=== PATIENT | female | born 1945 | race Caucasian/White ===

== ENCOUNTER → 2017-05-13 | Outpatient (REF) ==
[~2017-05-13] MED LIST: ASPIRIN E.C. 8181 MG PO; DYAZIDE 25 MG-51 CAP PO; LIPITOR 40MG TA40 MG PO; MAG-AL PLUS 3030 ML PO; METAMUCIL3.4 GM/DOS PO; OYSCO 500500 M1 PO; PEPCID 20MG TAB20 MG PO; PRINIVIL20 MG PO; SINEQUAN 5050 MG/CAP PO; SURFAK 240240 MG/CAP PO; SYNTHROID0.075 MG/T PO; TYLENOL 500MG500 MG PO; XANAX .25M0.25 MG/TA PO
[2017-05-13 09:37] LABS: CALCIUM 9.9 mg/dL (8.4-10.2); CREATININE, serum 0.93 mg/dL (0.52-1.25)
== END ==
LOC: ZLAB.STJ 08:56
PROVIDERS: Family Medicine
DX: E87.6 Hypokalemia (principal)

== ENCOUNTER → 2018-02-16 | Outpatient (CLI) | payer MEDICARE, BC, MEDICAID | LOC: MC.RAD 09:49 | DX: Z12.31 Encounter for screening mammogram for malignant neoplasm of breast (principal); F41.1 Generalized anxiety disorder ==

== ENCOUNTER → 2018-06-10 | Outpatient (CLI) | payer MEDICARE, BC, MEDICAID ==
[2018-06-10 12:13] LABS: CALCIUM 9.9 mg/dL (8.4-10.2); CREATININE, serum 0.89 (0.52-1.25); POTASSIUM 3.8 mmol/L (3.4-5.0)
== END ==
LOC: ZLAB.STJ 11:54
PROVIDERS: Family Medicine
DX: I10 Essential (primary) hypertension (principal)

== ENCOUNTER → 2018-06-10 | Outpatient (CLI) | payer MEDICARE, BC, MEDICAID | LOC: ZLAB.STJ 10:22 | DX: I10 Essential (primary) hypertension (principal) ==

== ENCOUNTER → 2018-11-18 | Outpatient (CLI) | payer MEDICARE, BC, MEDICAID | LOC: ZLAB.STJ 13:29 | DX: E87.6 Hypokalemia (principal) ==

== ENCOUNTER → 2018-11-19 | Outpatient (CLI) | payer MEDICARE, BC, MEDICAID | LOC: ZCOL.LAB 10:26 → ZLAB.STJ 10:26 | DX: E87.6 Hypokalemia (principal) ==

== ENCOUNTER → 2019-08-19 | Outpatient (CLI) | payer MEDICARE, BC, MEDICAID | LOC: ZLAB.STJ 14:38 | DX: Z01.84 Encounter for antibody response examination (principal); Z20.828 Contact with and (suspected) exposure to other viral communicable diseases ==

== ENCOUNTER 2019-12-16 03:43 | Inpatient (IN) | payer MEDICARE, BC, MEDICAID ==
[~2019-12-16] VITALS: Ht 147.3 cm; Wt 61.4 kg
[2019-12-16] VITALS (11 sets, daily range): BP systolic 101–149; BP diastolic 53–77; PULSE 74–97; TEMP 97.6–99
[2019-12-16 04:45] LABS: BASO % 0.2 % (0.0-2.0); EOS # 0.1 (0.0-0.7); EOS % 1.1 % (0-4.0); GRAN # 10.5 (1.4-6.5); GRAN % 84.2 % (42.2-75.2); HEMOGLOBIN 12.8 g/dl (12.5-16.0); LYMPH # 0.9 (1.2-3.4); LYMPH % 6.8 % (20.0-51.0); MEAN CELL VOLUME 88 fl (80.0-100.0); MEAN CORPUSCULAR HEMOGLOBIN 31 pg (27.0-31.0); MEAN CORPUSCULAR HGB CONC 35 g/dl (33.0-37.0); MEAN PLATELET VOLUME 10.3 fl (7.4-10.4); MONO # 0.9 (0.1-0.6); MONO % 7.2 % (1.7-9.3); PLATELET COUNT 233 K/mm3 (130-400); RED BLOOD COUNT 4.15 M/mm3 (4.10-5.30); REDCELL DISTRIBUTION WIDTH-CV 12.9 % (11.5-14.5)
[2019-12-16 04:47] LABS: HEMATOCRIT 36.7 % (37.0-47.0)
[2019-12-16 04:52] LABS: INR 1.1 (0.8-3.0); PROTHROMBIN TIME 12.4 SECONDS (9.7-12.8)
[2019-12-16 04:54] LABS: ALBUMIN 4.4 gm/dL (3.5-5.0); BILIRUBIN,TOTAL 0.5 mg/dL (0.0-1.0); CALCIUM 9.8 mg/dL (8.4-10.2); CREATININE, serum 0.99 (0.52-1.25); POTASSIUM 3.1 mmol/L (3.4-5.0); TOTAL PROTEIN 7.7 gm/dL (6.4-8.2)
[2019-12-16 05:01] LABS: PRE ALBUMIN 22.9 mg/dL (17.6-36.0)
[2019-12-16] MEDS ORDERED: TYLENOL 500MG500 MG PO (06:12)
[2019-12-16] MEDS ORDERED: CALCIUM-500 5001 CTB PO (06:13)
[2019-12-16] MEDS ORDERED: NORVASC 5MG5 MG/TAB PO (06:13)
[2019-12-16] MEDS ORDERED: DYAZIDE 25 MG-31 CAP PO (06:14)
[2019-12-16] MEDS ORDERED: STOOL SOFTENER240 M1 PO (06:14)
[2019-12-16] MEDS ORDERED: METAMUCIL3.4 GM/Dos PO (06:14)
[2019-12-16] MEDS ORDERED: VITAMIN D31000 I1 PO (06:15)
[2019-12-16] MEDS ORDERED: TRICOR145 MG PO (06:15)
[2019-12-16] MEDS ORDERED: XANAX 0.5MG0.5 MG PO (06:15)
[2019-12-16] MEDS ORDERED: SYNTHROID0.075 MG/T PO (06:15)
[2019-12-16] MEDS ORDERED: DEBROX OT (06:15)
[2019-12-16] MEDS ORDERED: TUMS500 MG PO (06:16)
[2019-12-16] MEDS ORDERED: K-TAB10 PO (06:17)
[2019-12-16] MEDS ORDERED: PEPCID 20MG TAB20 MG PO (06:17)
[2019-12-16] MEDS ORDERED: ARTIFICIAL TEAR15 M7 OP ×2 (06:17)
[2019-12-16] MEDS ORDERED: FLONASEALLERGY NS (06:18)
[2019-12-16] MEDS ORDERED: MELATIN 3 MG-11 TAB PO (06:18)
[2019-12-16] MEDS ORDERED: CLARITIN 1010 MG/TAB PO (06:18)
[2019-12-16] MEDS ORDERED: FOSAMAX 70MG TA70 MG PO (06:18)
[2019-12-16] MEDS ORDERED: CRESTOR40 MG PO (06:18)
[2019-12-16] MEDS ORDERED: SINEQUAN 5050 MG/CAP PO (06:39)
--- NOTE | 2019-12-16 15:13 | NUR ---
The patient has a cognitive delay. HANNA contacted the patient's sister, Adrienne Lagos (ph#[phone]), to discuss discharge plan. The patient resides at [facility] in Assisted Living. Adrienne states that the patient does not utilize any assistive devices. Her PCP is Dr. Marie Mcdonald. The patient does not have a DPOA-HC in EMR, but Adrienne states that the patient does have one completed and that she is the patient's DPOA-HC. She states that she can bring a copy of the document to the hospital and that [facility] should have a copy. The patient has a hip fracture. Adrienne reports that the plan is for the patient to return back to [facility] and do rehab there. HANNA faxed updates to Cesario at [facility] and requested the patient's DPOA-HC. HANNA to continue to follow.
--- NOTE | 2019-12-16 17:01 | NUR ---
Patient currently still in OR. Recieved Q2 morphine through the morning for pain prior to surgery. Patient does have a mental delay and speaks very briskly which makes it hard to understand. Sister is here currently.
--- NOTE | 2019-12-16 17:49 | NUR ---
PAtient arrived back to room from OR at this time. She is alert. Vitals being monitored per protocol. PAtient is aware of the numbness in her legs but continues to speak about this. PAtient is very shakey, denies being cold. No pain at all at this time. Dressing is CD&I, pulses are intact. Will continue to monitor.
--- NOTE | 2019-12-16 19:45 | NUR ---
Resting in bed. Assessment complete. Lungs clear. Heart sounds normal. Bowels active x4. Pulses present throughout. No edema noted. IV left wrist infiltrated. Restarted in right forearm. Denies pain at this time. Denies needs. Call light in reach. Ice to left hip, dressing CDI.
--- NOTE | 2019-12-17 00:45 | NUR ---
Resting in bed. Denies needs. Call light in reach.
--- NOTE | 2019-12-17 02:00 | NUR ---
Resting in bed. Denies needs. Call light in reach.
[2019-12-17 03:03] VITALS: BP 136/87; PULSE 75; TEMP 97.9
--- NOTE | 2019-12-17 05:09 | NUR ---
Patient required PRN norco for pain control x1 dose throughout night. Potassium replacement in progress-running slower due to patient sensitivity. Otherwise uneventful night. Resting in bed this Am. Call light in reach.
[2019-12-17 07:38] VITALS: BP 135/73; PULSE 93; TEMP 98
--- NOTE | 2019-12-17 07:38 | NUR ---
Report given to KOBY Garcia
[2019-12-17 07:46] LABS: BASO % 0.1 % (0.0-2.0); EOS % 0.1 % (0-4.0); GRAN # 12.7 (1.4-6.5); GRAN % 88.1 % (42.2-75.2); HEMOGLOBIN 12.5 g/dl (12.5-16.0); LYMPH # 0.8 (1.2-3.4); LYMPH % 5.6 % (20.0-51.0); MEAN CELL VOLUME 90 fl (80.0-100.0); MEAN CORPUSCULAR HEMOGLOBIN 31 pg (27.0-31.0); MEAN CORPUSCULAR HGB CONC 35 g/dl (33.0-37.0); MEAN PLATELET VOLUME 11.5 fl (7.4-10.4); MONO # 0.8 (0.1-0.6); MONO % 5.8 % (1.7-9.3); PLATELET COUNT 235 K/mm3 (130-400); RED BLOOD COUNT 3.99 M/mm3 (4.10-5.30)
[2019-12-17 07:57] LABS: HEMATOCRIT 35.8 % (37.0-47.0)
[2019-12-17 07:59] LABS: ALBUMIN 4.2 gm/dL (3.5-5.0); BILIRUBIN,TOTAL 0.6 mg/dL (0.0-1.0); CREATININE, serum 0.96 (0.52-1.25); POTASSIUM 4.2 mmol/L (3.4-5.0); TOTAL PROTEIN 7.5 gm/dL (6.4-8.2)
--- NOTE | 2019-12-17 08:06 | NUR ---
Pt assessment complete. Pt is A/O x4. Her breathing is even and unlabored on RA. Pt denies SOB. With a lot of encouragement and with assistance from staff patient assisted from the bed to the chair. L hip dressing CDI. Wyatt valdes on. Jesus DD. Pt tolerating liquids without complications. Diet advanced to regular per order set. No needs at this time. Call light within reach.
[2019-12-17 12:11] LABS: COLLECTION METHOD CATHETER
[2019-12-17 12:16] LABS: PH 7 (5-8); SQUAMOUS EPITHELIAL None Seen /hpf; URINE APPEARANCE Clear; URINE BACTERIA None Seen /hpf; URINE BILIRUBIN Negative (NEGATIVE); URINE BLOOD 1+ (NEGATIVE); URINE COLOR Colorless; URINE GLUCOSE Negative (NEGATIVE); URINE KETONE Negative (NEGATIVE); URINE LEUKOCYTE ESTERASE Negative (NEGATIVE); URINE NITRATE Negative (NEGATIVE); URINE PROTEIN(semi-quant) Negative (NEGATIVE); URINE RBC 0-2 /hpf; URINE UROBILINOGEN Negative (NEGATIVE)
[2019-12-17 14:01] VITALS: BP 132/74; PULSE 86; TEMP 98.3
[2019-12-17 16:50] VITALS: BP 119/40; PULSE 85; TEMP 98.4
--- NOTE | 2019-12-17 18:58 | NUR ---
Pt up to the chair twice today, required a lot of encouragement and assistance. Incisional site CDI. Ice to L hip site. SCD's and VIRGILIO's in place. Intermittently needed supplemental oxygen at 1L O2. Unable to perform IS correctly. Call light within reach, chair alarm on.
[2019-12-17 20:30] VITALS: BP 118/51; PULSE 86; TEMP 98.7
--- NOTE | 2019-12-17 20:30 | NUR ---
Initial shift assessment done- states had just a little pain to left hip, dressing dry and intact- ice to incision, will give Tylenol with night meds. Unable to understand and do the IS--- did cough and take deep breathes, Lee with clear yellow urine-
[2019-12-17 21:04] VITALS: BP 117/49; PULSE 73
[2019-12-18] VITALS (8 sets, daily range): BP systolic 106–129; BP diastolic 50–90; PULSE 73–86; TEMP 97.6–101.7
--- NOTE | 2019-12-18 07:30 | NUR ---
RECEIVED REPORT FROM SANDRA, PATIENT IS AWAKE AND ALERT. IS RESTING SLIGHTLY TO THE LEFT. REPEATEDLY STATES SHE DOESN'T WANT TO GO HOME AND THAT SHE IS NOT READY. SHE ALSO STATES SHE IS VERY HUNGRY AND WAS NOTIFIED THAT TRAYS WOULD BE DELIVERED SOON.
--- NOTE | 2019-12-18 08:01 | NUR ---
Was medicated with pain pill just once during the shift {besides the tylenol at start of shift} ice to incision, dressing dry and intact to hip--100cc out the Lee this shift
--- NOTE | 2019-12-18 20:30 | NUR ---
Initial shift assessment done- pt calling out that right leg is "twitching" -- was just given some Morphine by day shift nurse- left hip dressing dry and intac, encouraged pt to C&DB--did do a few cough for nurse-- unable to do IS,,SCD,s on- VSS, o2 at 2L/nc with sats 94%
[2019-12-19 04:19] VITALS: BP 129/62; PULSE 72; TEMP 98.5
--- NOTE | 2019-12-19 06:44 | NUR ---
Quiet night-- did give her a [place] at around 0100 this morning for some leg pain , Then did get [place] [facility] [place]/gait belt and walker/ unsteady--voided 250cc annie urine.
[2019-12-19 07:38] LABS: BASO # 0.1 (0.0-0.2); BASO % 0.6 % (0.0-2.0); EOS # 0.4 (0.0-0.7); EOS % 4.8 % (0-4.0); GRAN % 69.6 % (42.2-75.2); HEMATOCRIT 33.7 % (37.0-47.0); HEMOGLOBIN 11.7 g/dl (12.5-16.0); LYMPH # 1.3 (1.2-3.4); LYMPH % 14.8 % (20.0-51.0); MEAN CELL VOLUME 90 fl (80.0-100.0); MEAN CORPUSCULAR HEMOGLOBIN 31 pg (27.0-31.0); MEAN CORPUSCULAR HGB CONC 35 g/dl (33.0-37.0); MONO # 0.8 (0.1-0.6); MONO % 9.8 % (1.7-9.3); PLATELET COUNT 202 K/mm3 (130-400); RED BLOOD COUNT 3.76 M/mm3 (4.10-5.30)
[2019-12-19 07:48] LABS: CALCIUM 8.7 mg/dL (8.4-10.2); CREATININE, serum 1.03 (0.52-1.25); MAGNESIUM 2.3 mg/dL (1.6-2.3); POTASSIUM 3.9 mmol/L (3.4-5.0)
[2019-12-19 08:00] VITALS: BP 108/53; PULSE 99; TEMP 98.6
[2019-12-19 10:06] VITALS: BP 108/53; PULSE 99; TEMP 98.6
[2019-12-19] MEDS ORDERED: ASPI325T6 PO (10:06)
[2019-12-19] MEDS ORDERED: TYLENOL 500MG500 MG PO (10:07)
[2019-12-19] MEDS ORDERED: NORCO 325 MG-51 TAB PO (10:08)
[2019-12-19] MEDS ORDERED: VITAMIN C500 MG PO (10:08)
--- NOTE | 2019-12-19 10:47 | NUR ---
PATIENT IS SITTING UP IN RECLINER WATCHING TV AND DRINKING HOT TEA. CURRENTLY DENIES PAIN.
[2019-12-19 11:43] VITALS: BP 107/50; PULSE 101; TEMP 98.6
[2019-12-19 14:20] VITALS: BP 107/50; PULSE 101; TEMP 98.6
--- NOTE | 2019-12-19 14:24 | NUR ---
HANNA contacted by community organization worker stating that patient will DC on 12/19/19. HANNA contacted [facility] staff and set up 2:30pm, and faxed dc orders to agency. Nothing further.
--- NOTE | 2019-12-19 15:54 | NUR ---
Patient discharged to [facility] bed at 1456. Was assisted from bed to commode and assisted with dressing. Personal items were gathered and patient was transferred to wheelchair. Was transported to the facility via facility transportation.
== END 2019-12-19 14:56 | DRG 522 ==
LOC: COL.ER 03:43 → MEDICAL 04:19
PROVIDERS: Emergency Medicine; Internal Medicine; Nurse Practitioner Family; Orthopaedic Surgery Sports Medicine; ADMIT Student in an Organized Health Care Education/Training Program
PROC: 0SRS0J9 Replacement of Left Hip Joint, Femoral Surface with Synthetic Substitute, Cemented, Open Approach (ICD-10-PCS; principal; 2019-12-16 14:45)
DX: S72.002A Fracture of unspecified part of neck of left femur, initial encounter for closed fracture (principal); I10 Essential (primary) hypertension; E78.5 Hyperlipidemia, unspecified; E03.9 Hypothyroidism, unspecified; K21.9 Gastro-esophageal reflux disease without esophagitis; F32.9 Major depressive disorder, single episode, unspecified; F41.9 Anxiety disorder, unspecified; M19.90 Unspecified osteoarthritis, unspecified site; E87.6 Hypokalemia; G47.00 Insomnia, unspecified; G31.84 Mild cognitive impairment of uncertain or unknown etiology
CPT/HCPCS: 99223-AI; 99232-AI; 99239; A4314; A9284; C1776; J0690; J1100; J1885; J2250; J2270; J2405; J2704; J3010; J3475; J3480; J7030; J7120

== ENCOUNTER → 2020-01-06 | Outpatient (CLI) | payer MEDICARE, BC, MEDICAID ==
[~2020-01-06] MED LIST changes: +ARTIFICIAL TEAR15 M7 OP; +ASPI325T6 PO; +CALCIUM-500 5001 CTB PO; +CLARITIN 1010 MG/TAB PO; +CRESTOR40 MG PO; +DEBROX OT; +DYAZIDE 25 MG-31 CAP PO; +FLONASEALLERGY NS; +FOSAMAX 70MG TA70 MG PO; +K-TAB10 PO; +MELATIN 3 MG-11 TAB PO; +METAMUCIL3.4 GM/Dos PO; +NORCO 325 MG-51 TAB PO; +NORVASC 5MG5 MG/TAB PO; +STOOL SOFTENER240 M1 PO; +TRICOR145 MG PO; +TUMS500 MG PO; +VITAMIN C500 MG PO; +VITAMIN D31000 I1 PO; +XANAX 0.5MG0.5 MG PO
[2020-01-06 19:47] LABS: COLLECTION METHOD RANDOM VOIDED
[2020-01-06 19:59] LABS: PH 7 (5-8); SQUAMOUS EPITHELIAL 0-2 /hpf; URINE APPEARANCE Clear; URINE BACTERIA Rare /hpf; URINE BILIRUBIN Negative (NEGATIVE); URINE BLOOD Negative (NEGATIVE); URINE COLOR Yellow; URINE GLUCOSE Negative (NEGATIVE); URINE KETONE Negative (NEGATIVE); URINE LEUKOCYTE ESTERASE Negative (NEGATIVE); URINE NITRATE Negative (NEGATIVE); URINE PROTEIN(semi-quant) Negative (NEGATIVE); URINE RBC 0-2 /hpf; URINE UROBILINOGEN Negative (NEGATIVE)
== END ==
LOC: ZCOL.LAB 18:48
PROVIDERS: Family Medicine
DX: R30.9 Painful micturition, unspecified (principal)

== ENCOUNTER → 2020-02-02 | Outpatient (CLI) | payer MEDICARE, BC, MEDICAID | LOC: COL.RAD 12:18 | DX: Z96.642 Presence of left artificial hip joint (principal) ==

== ENCOUNTER → 2021-05-01 | Outpatient (CLI) | payer MEDICARE, BC, MEDICAID ==
[2021-05-01 10:25] LABS: COLLECTION METHOD CLEAN CATCH
[2021-05-01 10:46] LABS: MUCOUS Present (NOT PRESENT); PH 6 (5-8); SQUAMOUS EPITHELIAL 0-2 /hpf (0-10); URINE APPEARANCE Cloudy (CLEAR/HAZY); URINE BACTERIA Rare /hpf (NONE SEEN); URINE BILIRUBIN Negative (NEGATIVE); URINE BLOOD Negative (NEGATIVE); URINE CALCIUM OXALATE CRYSTAL Present (NOT PRESENT); URINE COLOR Yellow (YELLOW); URINE GLUCOSE Negative (NEGATIVE); URINE KETONE Negative (NEGATIVE); URINE LEUKOCYTE ESTERASE Negative (NEGATIVE); URINE NITRATE Negative (NEGATIVE); URINE PROTEIN(semi-quant) Negative (NEGATIVE); URINE RBC 0-2 /hpf (0-2); URINE UROBILINOGEN Negative (NEGATIVE)
== END ==
LOC: ZLAB.STJ 09:35
PROVIDERS: Family Medicine
DX: N18.31 Chronic kidney disease, stage 3a (principal)

== ENCOUNTER → 2021-05-11 | Outpatient (CLI) | payer MEDICARE, BC, MEDICAID ==
[2021-05-11 10:01] LABS: BILIRUBIN,TOTAL 0.4 mg/dL (0.2-1.2); CALCIUM 10.3 mg/dL (8.4-10.2); CREATININE, serum 0.9 mg/dL (0.57-1.11); POTASSIUM 3.3 mmol/L (3.5-4.5); TOTAL PROTEIN 7.7 gm/dL (6.2-8.1)
== END ==
LOC: ZLAB.STJ 09:13
PROVIDERS: Family Medicine
DX: R73.03 Prediabetes (principal); I10 Essential (primary) hypertension

== ENCOUNTER → 2021-06-18 | Outpatient (CLI) | payer MEDICARE, BC, MEDICAID ==
[2021-06-18 13:09] LABS: CALCIUM 9.8 mg/dL (8.4-10.2); CREATININE, serum 1.05 mg/dL (0.57-1.11); POTASSIUM 3.4 mmol/L (3.5-4.5)
== END ==
LOC: ZLAB.STJ 11:36
PROVIDERS: Family Medicine
DX: I10 Essential (primary) hypertension (principal)

== ENCOUNTER → 2021-06-29 | Outpatient (CLI) | payer MEDICARE, BC, MEDICAID ==
[2021-06-29 12:33] LABS: CALCIUM 9.7 mg/dL (8.4-10.2); CREATININE, serum 1.04 mg/dL (0.57-1.11); POTASSIUM 3.5 mmol/L (3.5-4.5)
== END ==
LOC: ZLAB.STJ 11:44
PROVIDERS: Family Medicine
DX: N18.31 Chronic kidney disease, stage 3a (principal)

== ENCOUNTER → 2021-07-12 | Outpatient (CLI) | payer MEDICARE, BC, MEDICAID ==
[2021-07-12 14:11] LABS: COLLECTION METHOD CLEAN CATCH
[2021-07-12 14:24] LABS: MUCOUS Present (NOT PRESENT); PH 6 (5-8); SQUAMOUS EPITHELIAL 0-2 /hpf (0-10); URINE APPEARANCE Hazy (CLEAR/HAZY); URINE BACTERIA None Seen /hpf (NONE SEEN); URINE BILIRUBIN Negative (NEGATIVE); URINE BLOOD Negative (NEGATIVE); URINE COLOR Yellow (YELLOW); URINE GLUCOSE Negative (NEGATIVE); URINE KETONE Negative (NEGATIVE); URINE LEUKOCYTE ESTERASE Trace (NEGATIVE); URINE NITRATE Negative (NEGATIVE); URINE PROTEIN(semi-quant) Negative (NEGATIVE); URINE RBC 0-2 /hpf (0-2); URINE UROBILINOGEN Negative (NEGATIVE)
== END ==
LOC: ZLAB.STJ 12:47
PROVIDERS: Family Medicine
DX: N39.0 Urinary tract infection, site not specified (principal)

== ENCOUNTER → 2021-09-06 | Outpatient (CLI) | payer MEDICARE, BC, MEDICAID | LOC: ZLAB.STJ 11:32 | DX: R73.03 Prediabetes (principal) ==

== ENCOUNTER → 2021-11-20 | Outpatient (CLI) | payer MEDICARE, BC, MEDICAID ==
[2021-11-20 16:05] LABS: COLLECTION METHOD CLEAN CATCH
[2021-11-20 16:13] LABS: BASO % 0.8 % (0.0-2.0); EOS # 0.2 K/mm3 (0.0-0.7); EOS % 4.2 % (0.0-4.0); GRAN # 2.8 K/mm3 (1.4-6.5); GRAN % 57.4 % (42.2-75.2); HEMOGLOBIN 12.2 g/dl (12.5-16.0); LYMPH # 1.2 K/mm3 (1.2-3.4); LYMPH % 25.9 % (20.0-51.0); MEAN CELL VOLUME 94 fl (80.0-100.0); MEAN CORPUSCULAR HEMOGLOBIN 33 pg (27-31); MEAN CORPUSCULAR HGB CONC 35 g/dl (33.0-37.0); MEAN PLATELET VOLUME 11.1 fl (7.4-10.4); MONO # 0.6 K/mm3 (0.1-0.6); MONO % 11.5 % (1.7-9.3); PLATELET COUNT 213 K/mm3 (130-400); RED BLOOD COUNT 3.68 M/mm3 (4.10-5.30); REDCELL DISTRIBUTION WIDTH-CV 12.7 % (11.5-14.5)
[2021-11-20 16:14] LABS: HEMATOCRIT 34.5 % (37.0-47.0)
[2021-11-20 16:16] LABS: PH 6.5 (5.0-8.5); URINE APPEARANCE Clear (CLEAR/HAZY); URINE BLOOD Negative (NEGATIVE); URINE COLOR Yellow (YELLOW); URINE GLUCOSE Negative (NEGATIVE); URINE KETONE Negative (NEGATIVE); URINE NITRATE Negative (NEGATIVE); URINE PROTEIN(semi-quant) Negative (NEGATIVE); URINE UROBILINOGEN 0.2 E.U/dL (0.2-1.0)
[2021-11-20 16:21] LABS: MUCOUS Present (NOT PRESENT); SQUAMOUS EPITHELIAL 0-2 /hpf (0-10); URINE BACTERIA None Seen /hpf (NONE SEEN); URINE RBC 0-2 /hpf (0-2); URINE WBC 0-2 /hpf (0-2)
[2021-11-20 16:27] LABS: ALBUMIN 3.6 gm/dL (3.4-4.8); BILIRUBIN,TOTAL 0.4 mg/dL (0.2-1.2); CALCIUM 10.7 mg/dL (8.4-10.2); CREATININE, serum 1.19 mg/dL (0.57-1.11); POTASSIUM 3.7 mmol/L (3.5-4.5)
[2021-11-20 16:46] LABS: TSH w REFLEX 0.49 uIU/mL (0.350-4.940)
== END ==
LOC: ZLAB.STJ 15:54
PROVIDERS: Family Medicine
DX: N18.31 Chronic kidney disease, stage 3a (principal); D50.0 Iron deficiency anemia secondary to blood loss (chronic); E78.5 Hyperlipidemia, unspecified; R73.03 Prediabetes; I10 Essential (primary) hypertension; E03.9 Hypothyroidism, unspecified

== ENCOUNTER → 2022-05-07 | Outpatient (CLI) | payer MEDICARE, MEDICAID | LOC: COL.RAD 09:53 | DX: R13.10 Dysphagia, unspecified (principal) ==

== ENCOUNTER 2022-06-19 10:20 | Inpatient (IN) | payer MEDICARE, MEDICAID ==
[~2022-06-19] VITALS: Ht 142.2 cm; Wt 47.0 kg
[2022-06-19 10:50] LABS: MEAN CELL VOLUME 85 fl (80.0-100.0); MEAN CORPUSCULAR HEMOGLOBIN 26 pg (27-31); MEAN CORPUSCULAR HGB CONC 31 g/dl (33.0-37.0); MEAN PLATELET VOLUME 10.5 fl (7.4-10.4); PLATELET COUNT 279 K/mm3 (130-400); RED BLOOD COUNT 4.23 M/mm3 (4.10-5.30); REDCELL DISTRIBUTION WIDTH-CV 19.5 % (11.5-14.5)
[2022-06-19 10:58] LABS: HEMATOCRIT 35.9 % (37.0-47.0)
[2022-06-19 11:05] LABS: ALANINE AMINOTRANSFERASE 19 U/L (0-55); ALBUMIN 2.3 gm/dL (3.4-4.8); ALKALINE PHOSPHATASE 121 U/L (40-150); ANION GAP 11 mmol/L (7-16); AST,SGOT 33 U/L (5-34); BILIRUBIN,TOTAL 0.4 mg/dL (0.2-1.2); BLOOD UREA NITROGEN 51 mg/dL (10-20); CARBON DIOXIDE 20 mmol/L (23-31); CHLORIDE 106 mmol/L (98-107); CREATININE, serum 1.84 mg/dL (0.57-1.11); GLUCOSE 114 mg/dL (70-99); POTASSIUM 5.2 mmol/L (3.5-4.5); SODIUM 137 mmol/L (136-145); TOTAL PROTEIN 8.2 gm/dL (6.2-8.1)
[2022-06-19 11:14] LABS: CALCIUM 13.1 mg/dL (8.4-10.2); TROPONIN-I < 0.010 ng/mL (0.00-0.033)
[2022-06-19 11:28] LABS: COLLECTION METHOD CATHETER
[2022-06-19 11:50] LABS: SQUAMOUS EPITHELIAL 0-2 /hpf (0-10); URINE BACTERIA None Seen /hpf (NONE SEEN); URINE RBC 0-2 /hpf (0-2)
[2022-06-19 11:53] LABS: URINE APPEARANCE Clear (CLEAR/HAZY); URINE BLOOD Negative (NEGATIVE); URINE COLOR Yellow (YELLOW); URINE GLUCOSE Negative (NEGATIVE); URINE KETONE Negative (NEGATIVE); URINE NITRATE Negative (NEGATIVE); URINE PROTEIN(semi-quant) 2+ (NEGATIVE); URINE UROBILINOGEN 0.2 E.U/dL (0.2-1.0)
[2022-06-19 12:21] LABS: ANISOCYTOSIS 2+; BAND 9 % (0-10); LYMPHOCYTE 1 % (20.0-51.0); NEUTROPHILS 90 % (42.0-75.2); PLATELET ESTIMATE NORMAL (NORMAL)
[2022-06-19 16:17] VITALS: BP 105/51; PULSE 90; TEMP 98.1
[2022-06-19] MEDS ORDERED: DIFLUCAN200 MG PO (16:34)
[2022-06-19] MEDS ORDERED: NEURONTIN100 MG/CAP PO (16:35)
[2022-06-19] MEDS ORDERED: DELSYM30 MG/5 ML PO (16:36)
[2022-06-19] MEDS ORDERED: ZOFRAN ODT4 MG PO (16:38)
[2022-06-19] MEDS ORDERED: DULCOLAX STOOL100 MG PO (16:39)
[2022-06-19] MEDS ORDERED: ATARAX 25MG25 MG/TAB PO ×2 (16:40→16:41)
[2022-06-19] MEDS ORDERED: HYDROCIL INSTA300 GM (16:42)
[2022-06-19] MEDS ORDERED: HYDROCIL INSTA300 GM PO (16:43)
[2022-06-19] MEDS ORDERED: K-TAB20 PO (16:44)
[2022-06-19] MEDS ORDERED: TYLENOL 500MG500 MG PO (16:46)
[2022-06-19] MEDS ORDERED: FOSAMAX 70MG TA70 MG PO (16:52)
[2022-06-19] MEDS ORDERED: PATADAY 2.5 ML2.5 ML OU (16:54)
[2022-06-19] MEDS ORDERED: ASPIRIN E.C. 8181 MG PO (16:55)
--- NOTE | 2022-06-19 17:46 | NUR ---
PATIENT IS NEW ADMIT TO THE FLOOR FROM THE ED. CAME UP WITH ED STAFF AND WAS 3X PERSON ASSIST TO THE BED SLIDING. PATIENT IS ALERT, BUT NOT ORIENTED. WILL SAY HELLO, YES, AND NO, BUT IT IS NOT POSSIBLE TO TELL IF PATIENT IS COGNITIVELY THERE. PATIENT IS ON FLUIDS AT 125 P HOUR. RECEIVING SECOND BAG OF 3 (3,000) NS .9%. NPO UNTIL SPEECH SEES THE PATIENT TOMORROW. NURSING SPOKE WITH THE NURSE AUTUMN RN AT [facility] AND STATED THAT THE PATIENT HAS BEEN LOSING WEIGHT FOR MONTHS AND IS NOT EATING ENOUGH. PATIENT WAS AND IS CURRENTLY HAVING DIFFICULTY SWALLOWING, AND WAS BEING TREATED WITH LEVAQUIN FOR POSSIBLE PNEUMONIA AT THE FACILITY. SISTER IS FLYING HOME FROM A TRIP, BUT STATED THEY WOULD BE IN TO SEE THEIR SIBLING THE NEXT DAY. WILL CONTINUE TO MONITOR. BED ALARM ON 3X BEDRAILS UP. PATIENT DOES HAVE A LIGHT COUGH. VSS.
[2022-06-19 19:56] VITALS: BP 106/53; PULSE 85; TEMP 98.1
[2022-06-19 23:28] VITALS: BP 108/49; PULSE 82; TEMP 99
--- NOTE | 2022-06-20 01:09 | NUR ---
PT. RESPONDS TO NAME, MADE VERBAL NOISES THAT SOUNDED LIKE MUMBLING, OR POSSIBLY A NO WHEN I ASKED HER IF SHE WAS HAVING PAIN ANYWHERE, BUT OTHERWISE NO AUDIBLE WORDS, RESPIRATIONS EVEN AND UNLABORED, MCDONOUGH IS DRAINING CLEAR YELLOW URINE, SKIN C/D/I, NO SIGNS OF DISTRESS NOTED, WILL CONTINUE TO MONITOR.
[2022-06-20 04:13] VITALS: BP 105/47; PULSE 84; TEMP 99
[2022-06-20 07:04] LABS: MEAN CELL VOLUME 84 fl (80.0-100.0); MEAN CORPUSCULAR HGB CONC 31 g/dl (33.0-37.0); MEAN PLATELET VOLUME 10.2 fl (7.4-10.4); RED BLOOD COUNT 3.17 M/mm3 (4.10-5.30); REDCELL DISTRIBUTION WIDTH-CV 19.2 % (11.5-14.5)
[2022-06-20 07:05] LABS: HEMATOCRIT 26.7 % (37.0-47.0); HEMOGLOBIN 8.2 g/dl (12.5-16.0); MEAN CORPUSCULAR HEMOGLOBIN 26 pg (27-31); PLATELET COUNT 157 K/mm3 (130-400)
[2022-06-20 07:23] LABS: CALCIUM 9.8 mg/dL (8.4-10.2); CREATININE, serum 1.08 mg/dL (0.57-1.11); POTASSIUM 3.4 mmol/L (3.5-4.5)
[2022-06-20 07:37] VITALS: BP 109/46; PULSE 84; TEMP 98.9
--- NOTE | 2022-06-20 08:29 | NUR ---
Lab staff notified this nurse of blood glucose of 70 with am labs. Shift assessment completed. Patient resting in bed, alert but not oriented. Mild left side facial drooping noted. Attempted to do neurological check but patient is non verbal and doesn't follow verbal commands. Hospitalist notified, Dr. Webster to come assess patient shortly. Dr. Webster request accucheck. BG 71. Dr. Webster assessed patient shortly after. New order received.
[2022-06-20 08:49] LABS: ANISOCYTOSIS 2+; BAND 4 % (0-10); HYPOCHROMIA 3+; LYMPHOCYTE 3 % (20.0-51.0); NEUTROPHILS 92 % (42.0-75.2); PLATELET ESTIMATE NORMAL (NORMAL)
[2022-06-20 11:42] VITALS: BP 105/47; PULSE 81; TEMP 97.8
--- NOTE | 2022-06-20 15:36 | NUR ---
Janiya Ochoa and I met with pt's sister Adrienne for Palliative consult. Adrienne stated she prefers [facility] for her sister. Janiya is working on referral to [facility]. Adrienne had no further questions. Pt lying in bed w/eyes open, not tracking movements or responding.
--- NOTE | 2022-06-20 15:37 | NUR ---
ordnance equipment worker and Lindsay, Palliative Care RN met with with patient's sister, Adrienne [facility] #[phone] to complete initial assessment and palliative care consult. Patient is a long-term care resident of [facility] and can return there upon discharge. Patient has a dpoa for health care naming Adrienne. Worker explained that patient can return to [facility] with hospice, and provided other options, per Adrienne's request. Worker advised of home hospice and the [facility]. Adrienne chose the [facility] and worker provided referral. Worker contacted Dr Marie Mcdonald's office and confirmed that Dr Mcdonald supports hospice care. Praveen with [facility] accepted patient on 06/21 and requests a 1:00 transfer. Worker arranged [facility] ambulance to transport patient to [facility] on 06/21 at 1:00. Patient's sister, Adrienne is aware and agreeable to the above information. Worker notified Kae at [facility] of the above information.
--- NOTE | 2022-06-20 18:14 | NUR ---
Patient is in palliative care now. Possible discharge tomorrow to [facility].
--- NOTE | 2022-06-20 23:23 | NUR ---
2031-PT. APPEARS TO BE RESTING COMFORTABLY, STILL HAS SUPPER TRAY IN ROOM, SO I ASKED PARVEEN, THE TECH TO SEE IF SHE WOULD BE ABLE TO HELP PATIENT EAT, PT. REFUSED ANY FOOD HOWEVER, SINCE PT. IS ON COMFORT CARE NOW, WON'T BE TURNING HER EVERY TWO HOURS, BUT EVERY FOUR HOURS THROUGH THE NIGHT, WILL CONTINUE TO MONITOR.
[2022-06-21 06:47] LABS: MEAN CELL VOLUME 87 fl (80.0-100.0); MEAN CORPUSCULAR HGB CONC 29 g/dl (33.0-37.0); MEAN PLATELET VOLUME 10.6 fl (7.4-10.4); PLATELET COUNT 114 K/mm3 (130-400); RED BLOOD COUNT 3.32 M/mm3 (4.10-5.30); REDCELL DISTRIBUTION WIDTH-CV 19.7 % (11.5-14.5)
[2022-06-21 06:57] LABS: ALBUMIN 1.7 gm/dL (3.4-4.8); BILIRUBIN,TOTAL 0.4 mg/dL (0.2-1.2); CREATININE, serum 0.86 mg/dL (0.57-1.11); POTASSIUM 3.3 mmol/L (3.5-4.5); TOTAL PROTEIN 6.2 gm/dL (6.2-8.1)
[2022-06-21 07:12] LABS: HEMATOCRIT 28.9 % (37.0-47.0); HEMOGLOBIN 8.5 g/dl (12.5-16.0); MEAN CORPUSCULAR HEMOGLOBIN 26 pg (27-31)
--- NOTE | 2022-06-21 08:00 | NUR ---
Patient laying in bed awake. Non verbal. 2L NC O2. No IV access. On comfort care. Nurse assisted with repositioning patients head. Lee intact. Pillow under right side. Denies pain and discomfort. Call light within reach. Bed alarm on
[2022-06-21 08:21] LABS: BAND 2 % (0-10); LYMPHOCYTE 4 % (20.0-51.0); NEUTROPHILS 93 % (42.0-75.2); PLATELET ESTIMATE DECREASED (NORMAL)
[2022-06-21 08:22] LABS: ANISOCYTOSIS 2+; HYPOCHROMIA 3+
[2022-06-21] MEDS ORDERED: XANAX 0.5MG0.5 MG PO (09:21)
[2022-06-21] MEDS ORDERED: ZOFRAN ODT4 MG PO (09:21)
[2022-06-21] MEDS ORDERED: ROXANOL 20MG20 MG/ML SL (09:26)
--- NOTE | 2022-06-21 10:29 | NUR ---
Patients demographics completed on EMS and signed by physician. Forms provided to house per request. EMS already arranged for a 1300 fruit picker time.
--- NOTE | 2022-06-21 13:00 | NUR ---
EMS here to transport the patient to [facility]. Sister at the bedside. Discharge paperwork with the patient. Report called to [facility]. No further needs expressed.
== END 2022-06-21 13:00 | disposition hospice, inpatient (51) | DRG 189 ==
LOC: COL.ER 10:20 → MEDICAL 13:35
PROVIDERS: Physician Assistant; ADMIT Student in an Organized Health Care Education/Training Program
DX: J96.01 Acute respiratory failure with hypoxia (principal); R65.10 Systemic inflammatory response syndrome (SIRS) of non-infectious origin without acute organ dysfunction; G93.40 Encephalopathy, unspecified; N17.9 Acute kidney failure, unspecified; J98.11 Atelectasis; E87.20 Acidosis, unspecified; E44.0 Moderate protein-calorie malnutrition; C78.7 Secondary malignant neoplasm of liver and intrahepatic bile duct; C79.70 Secondary malignant neoplasm of unspecified adrenal gland; C79.52 Secondary malignant neoplasm of bone marrow; R16.0 Hepatomegaly, not elsewhere classified; N85.9 Noninflammatory disorder of uterus, unspecified; N88.9 Noninflammatory disorder of cervix uteri, unspecified; I12.9 Hypertensive chronic kidney disease with stage 1 through stage 4 chronic kidney disease, or unspecified chronic kidney disease; N18.30 Chronic kidney disease, stage 3 unspecified; E03.9 Hypothyroidism, unspecified; Z66 Do not resuscitate; G62.9 Polyneuropathy, unspecified; M85.80 Other specified disorders of bone density and structure, unspecified site; R80.9 Proteinuria, unspecified; K21.9 Gastro-esophageal reflux disease without esophagitis; D64.9 Anemia, unspecified; E83.52 Hypercalcemia; E87.5 Hyperkalemia; E87.6 Hypokalemia; R62.7 Adult failure to thrive; R13.10 Dysphagia, unspecified; K59.09 Other constipation; F79 Unspecified intellectual disabilities; E78.5 Hyperlipidemia, unspecified; F41.9 Anxiety disorder, unspecified; G47.00 Insomnia, unspecified
CPT/HCPCS: A4314; J0456; J0696; J3480; J7030; J7050; Q9967